=== PATIENT | male | born 1955 | race Caucasian/White ===

== ENCOUNTER 2017-01-17 15:09 | Emergency (ER) | payer OTHER ==
[~2017-01-17 15:09] MED LIST: ASPIRIN EC81 M1 PO; ASPIRIN PO; BENAZEPRIL PO; DOCUSATE SODIU100 MG PO; EFFIENT10 MG PO; FLAGYL PO; LEVAQUIN PO; LIPITOR; LIPITOR PO; LIPITOR40 MG PO; LISINOPRIL20 MG PO; LOPRESSOR PO; LOTENSIN40 MG PO; METOPROLOL TAR25 MG PO; NITROGLYCERIN0.4 MG SL; PERCOCET5/325 PO; PLAVIX PO; PRILOSEC20 M1 PO; PROTONIX PO
[2017-01-17 15:41] LABS: URINE SOURCE CLEAN CATCH
[2017-01-17 15:47] LABS: URINE APPEARANCE CLEAR; URINE BILIRUBIN NEG (NEG); URINE BLOOD NEG (NEG); URINE COLOR YELLOW; URINE GLUCOSE NEG (NEG); URINE KETONE NEG (NEG); URINE LEUKOCYTE ESTERASE NEG (NEG); URINE NITRATE NEG (NEG); URINE PH 5.5 (5-8); URINE PROTEIN NEG (NEG); URINE SPECIFIC GRAVITY 1.021 (1.003-1.035); URINE UROBILINOGEN 0.2 MG/DL (NEG)
[2017-01-17 15:51] LABS: BASOPHIL# 0.1 X10e3 (0-0.3); BASOPHIL% 0.5 % (0-2.5); EOSINOPHIL# 0.1 X10e3 (0-0.7); EOSINOPHIL% 0.7 % (0.0-7.0); HEMATOCRIT 43.9 % (38.0-50.0); HEMOGLOBIN 14.6 gm/dL (13.0-16.0); LYMPHOCYTE# 1.8 X10e3 (1.0-3.5); LYMPHOCYTE% 11.3 % (17.0-45.0); MEAN CELL VOLUME 92.2 FL (83-96); MEAN CORPUSCULAR HEMOGLOBIN 30.7 PG (28-34); MEAN CORPUSCULAR HGB CONC 33.3 g/dL (30-36); MONOCYTE# 1.7 X10e3 (0-1.0); MONOCYTE% 10.3 % (3.0-12.0); NEUTROPHIL# 12.5 X10e3 (1.5-7.1); NEUTROPHIL% 77.2 % (40-75); PLATELET COUNT 186 X10e3 (140-420); RED BLOOD COUNT 4.77 X10e (3.90-5.60); RED CELL DISTRIBUTION WIDTH 14.4 % (11.0-15.5); WHITE BLOOD COUNT 16.2 X10e3 (4.0-10.5)
[2017-01-17 15:52] LABS: DIFF IND YES
[2017-01-17 15:59] LABS: CULTURE INDICATED? NO
[2017-01-17 16:20] LABS: BILIRUBIN, DIRECT 0.1 mg/dL (0.0-0.2); BILIRUBIN,INDIRECT 0.3 mg/dL (0.0-0.9); BILIRUBIN,TOTAL 0.4 mg/dL (0.2-2.0); CALCIUM SERUM 9.2 mg/dL (8.4-10.2); GLOM FILT RATE Estimated 80.9 mL/min (>60); POTASSIUM 4.1 mmol/L (3.5-5.1); PROTEIN TOTAL SERUM 7.2 g/dL (6.0-8.3)
[2017-01-17 16:35] LABS: PLATELET ESTIMATE NORMAL (NORMAL)
== END 2017-01-17 17:24 | disposition home or self-care (01) ==
LOC: CFTX 15:09
PROVIDERS: Physician Assistant Medical
DX: M79.1 Myalgia (principal); R21 Rash and other nonspecific skin eruption; I10 Essential (primary) hypertension; K21.9 Gastro-esophageal reflux disease without esophagitis; F17.210 Nicotine dependence, cigarettes, uncomplicated; I25.2 Old myocardial infarction; Z95.1 Presence of aortocoronary bypass graft; Z79.899 Other long term (current) drug therapy
CPT/HCPCS: 36415; 80048; 80076; 81003; 82550; 85025; 99283

== ENCOUNTER 2017-03-08 07:46 | Emergency (ER) | payer OTHER ==
--- NOTE | ~2017-03-08 | CT2 ---
[facility] A Service of [facility] RADIOLOGY TEXT RESULTS PATIENT: JENNIFER CRUZ LOCATION: [facility] : 55 UNIT #: [id number] AGE: [address]: Paul Mejias MD SEX: M ORDER DR: [id number] [facility]. [place], [place] [address] [id number] MR#: [id number] Acc #: [id number] NAME: JENNIFER CRUZ. : 1955 SEX: M STUDY DATE/TIME: 03/08/2017 11:27 UNIT: [facility] ROOM: STUDY DESCRIPTION: CT Abd and Pelv W Cont Attending Physician: Paul Mejias M.D. Ordering Physician: Paul Mejias M.D. Primary Care Physician: Surjit Rivera M.D. MEDICAL IMAGING REPORT This report is preliminary unless electronic signature is present EXAM CT abdomen and pelvis with contrast INDICATIONS Abdominal pain and nausea for 2-[address] scan of the abdomen and pelvis was performed following the administration of oral and IV contrast. Coronal and sagittal reformatted images were obtained. This CT exam was performed with one or more of the following radiation dose reduction techniques: automatic exposure control, adjustment of mA and/or kV according to patient size, and iterative reconstruction. COMPARISON 11/29/2016 FINDINGS There are emphysematous changes of the lung bases. There are multiple cysts within the liver. These are stable. The gallbladder is unremarkable. The spleen is unremarkable. There are postoperative changes of the left kidney. The right kidney is unremarkable. The adrenal glands are unremarkable. The pancreas is unremarkable. 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 Pelvis: Extensive sigmoid diverticulosis. Normal appendix. No free fluid. The bone windows are unremarkable. IMPRESSION 1. Extensive sigmoid diverticulosis. There are no CT findings to suggest acute diverticulitis. 2. Aortobifemoral bypass graft is patent. [facility] A Service of [facility] RADIOLOGY TEXT RESULTS PATIENT: JENNIFER CRUZ LOCATION: [facility] : 55 UNIT #: [id number] AGE: [address]: Paul Mejias MD SEX: M ORDER DR: 3. Multiple hepatic cysts. 4. Stable partial left nephrectomy. Dictated by... Iain Mann M.D. THIS IS AN ELECTRONICALLY VERIFIED REPORT Iain Mann M.D. at 03/09/2017 7:35 AM ARS/to TD: 03/08/2017 12:06 JOB #: [id number] MEDICAL IMAGING REPORT Page 1 of 1 COPY
[2017-03-08 09:21] LABS: BASOPHIL# 0.1 X10e3 (0-0.3); BASOPHIL% 0.5 % (0-2.5); EOSINOPHIL# 0.1 X10e3 (0-0.7); EOSINOPHIL% 1.3 % (0.0-7.0); HEMATOCRIT 43.7 % (38.0-50.0); HEMOGLOBIN 14.6 gm/dL (13.0-16.0); LYMPHOCYTE# 1.8 X10e3 (1.0-3.5); LYMPHOCYTE% 16.8 % (17.0-45.0); MEAN CELL VOLUME 93.4 FL (83-96); MEAN CORPUSCULAR HEMOGLOBIN 31.2 PG (28-34); MEAN CORPUSCULAR HGB CONC 33.5 g/dL (30-36); MEAN PLATELET VOLUME 8.3 FL (6.5-11.5); MONOCYTE% 9.1 % (3.0-12.0); NEUTROPHIL# 7.7 X10e3 (1.5-7.1); NEUTROPHIL% 72.3 % (40-75); PLATELET COUNT 213 X10e3 (140-420); RED BLOOD COUNT 4.68 X10e (3.90-5.60); RED CELL DISTRIBUTION WIDTH 15.4 % (11.0-15.5); WHITE BLOOD COUNT 10.6 X10e3 (4.0-10.5)
[2017-03-08 09:30] LABS: DIFF IND NO
[2017-03-08 09:51] LABS: ALBUMIN SERUM 3.9 g/dL (3.5-5.0); ALKALINE PHOSPHATASE 72 U/L (32-92); ALT (SGPT) 21 U/L (10-40); AST (SGOT) 20 U/L (10-42); BILIRUBIN,TOTAL 0.5 mg/dL (0.2-2.0); BLOOD UREA NITROGEN 15 mg/dL (9-23); BUN/CREATININE RATIO 16.66; CALCIUM SERUM 9.4 mg/dL (8.4-10.2); CARBON DIOXIDE 26 mmol/L (22-31); CHLORIDE 102 mmol/L (100-111); CREATININE SERUM 0.9 mg/dL (0.6-1.4); GLOM FILT RATE Estimated 91.9 mL/min (>60); GLUCOSE FASTING 125 mg/dL (70-110); LIPASE 18 U/L (22-51); POTASSIUM 4.6 mmol/L (3.5-5.1); PROTEIN TOTAL SERUM 6.8 g/dL (6.0-8.3); SODIUM 138 mmol/L (135-145)
[2017-03-08 09:52] LABS: BILIRUBIN, DIRECT <0.1 mg/dL (0.0-0.2); BILIRUBIN,INDIRECT 0.4 mg/dL (0.0-0.9)
[2017-03-08 10:07] LABS: URINE SOURCE CLEAN CATCH
[2017-03-08 10:12] LABS: URINE APPEARANCE CLEAR; URINE BILIRUBIN NEG (NEG); URINE BLOOD TRACE (NEG); URINE COLOR YELLOW; URINE GLUCOSE NEG (NEG); URINE KETONE NEG (NEG); URINE LEUKOCYTE ESTERASE NEG (NEG); URINE NITRATE NEG (NEG); URINE PROTEIN NEG (NEG); URINE SPECIFIC GRAVITY 1.014 (1.003-1.035)
[2017-03-08 10:15] LABS: URBCS1 AUWI 0-2 /[HPF] (0-2); URINE BACTERIA AUWI NEG (NEGATIVE); URINE SQUAMOUS EPITHELIAL CELL NONE SEEN /[HPF]; UWBCS1 AUWI 0-2 (0-5)
[2017-03-08 10:16] LABS: CULTURE INDICATED? NO
== END 2017-03-08 12:27 | disposition home or self-care (01) ==
LOC: CED 07:46
DX: R10.84 Generalized abdominal pain (principal); F17.200 Nicotine dependence, unspecified, uncomplicated; I10 Essential (primary) hypertension; E78.5 Hyperlipidemia, unspecified; Z95.828 Presence of other vascular implants and grafts
CPT/HCPCS: 36415; 74177; 80048; 80076; 81003; 83690; 85025; 96361; 96374; 96375; 99284; J2270; J2405; Q9967